=== PATIENT | male | born 1950 | race Two or more races ===

== ENCOUNTER → 2024-08-16 | Outpatient (CLI) | payer MEDICARE, MEDICAID, SELFPAY ==
--- NOTE | 2024-08-16 13:36 | XR_ITS ---
Examination: Shoulder,left, 3 views Technique: Shoulder AP internal rotation, AP external rotation, Y view shoulder, 3 views Exam date and time :August 16, 2024 1443 hours INDICATIONS: Left shoulder pain beginning 2 years ago FINDINGS: Mild narrowing glenohumeral joint No shoulder fracture or dislocation No AC joint separation IMPRESSION: Mild narrowing glenohumeral joint
== END | disposition home or self-care (01) ==
LOC: SDIM 13:25
PROVIDERS: PCP Internal Medicine; Referring Provider Physician Assistant Medical; Visit Provider Physician Assistant Medical
DX: M25.812 Other specified joint disorders, left shoulder (principal)
CPT/HCPCS: 73030

== ENCOUNTER → 2024-09-26 | Outpatient (CLI) | payer MEDICARE, MEDICAID, SELFPAY ==
--- NOTE | 2024-09-26 13:50 | XR_ITS ---
Examination:Left hip AP, lateral, AP pelvis 3 views Technique: Hip AP lateral, AP pelvis, 3 views Exam date and time:September 26, 2024 1506 hours INDICATIONS: Right hip pain this week. FINDINGS: Mild to moderate narrowing right and left hip joints No hip fractures or dislocations Bones of the pelvis intact IMPRESSION: Mild to moderate narrowing right and left hip joints.
== END | disposition home or self-care (01) ==
PROVIDERS: PCP Internal Medicine; Referring Provider Internal Medicine; Visit Provider Internal Medicine
DX: M25.851 Other specified joint disorders, right hip (principal)
CPT/HCPCS: 73502